=== PATIENT | female | born 1970 | race African-American/Black ===

== ENCOUNTER 2017-02-14 13:17 | Emergency (ER) | payer SELFPAY ==
[2017-02-14] MEDS ORDERED: Ibuprofen 200 MG TAB ONE (13:50)
[2017-02-14 14:26] LABS: Pregu Control Bar Appear? YES (CONTROL BAR); Specific Gravity 1.005 (1.002-1.036)
--- NOTE | 2017-02-14 15:16 | CT ---
CT BRAIN: Date: 02/14/17 PROVIDED CLINICAL HISTORY: Headache. FINDINGS: Comparison made with study dated 05/31/16. The ventricular system remains normal in size and morphology. There is no evidence for intracranial hemorrhage or mass effect. The extracranial soft tissues and osseous structures demonstrate an unrem arkable CT appearance. IMPRESSION: No evidence for intracranial hemorrhage or mass effect. POS: [facility]
== END 2017-02-14 15:05 | disposition home or self-care (01) ==
LOC: NAV ERS 13:17
DX: H66.91 Otitis media, unspecified, right ear (principal); J06.9 Acute upper respiratory infection, unspecified; I10 Essential (primary) hypertension; F41.9 Anxiety disorder, unspecified; F17.210 Nicotine dependence, cigarettes, uncomplicated
CPT/HCPCS: 70450; 81025; 87081; 87430

== ENCOUNTER 2017-03-24 12:22 | Emergency (ER) | payer SELFPAY ==
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
== END 2017-03-24 13:25 | disposition home or self-care (01) ==
LOC: NAV ERS 12:22
DX: M10.9 Gout, unspecified (principal); I10 Essential (primary) hypertension; F41.9 Anxiety disorder, unspecified; F17.210 Nicotine dependence, cigarettes, uncomplicated
CPT/HCPCS: 84550

== ENCOUNTER 2017-06-09 11:47 | Emergency (ER) | payer SELFPAY ==
[2017-06-09] MEDS ORDERED: Lidocaine Viscous Sol 2% 15 ml UD Cup ONE (12:10)
[2017-06-09] MEDS ORDERED: Mag-Al Plus 1200 MG/1200 MG/120 MG/30 ML UDCUP ONE (12:10)
[2017-06-09 12:27] LABS: ALT (SGPT) 20 U/L (8-55); AST (SGOT) 25 U/L (5-34); Albumin 3.9 g/dL (3.5-5.0); Alkaline Phosphatase 96 U/L (40-150); Anion Gap 17 mmol/L (10-20); BUN (Urea Nitrogen) 8 mg/dL (7.0-18.7); Bilirubin, Total 0.3 mg/dL (0.2-1.2); Calc. Creatinine Clearance 0 mL/min (70-130); Calcium 8.6 mg/dL (7.8-10.44); Carbon Dioxide 21 mmol/L (22-29); Chloride 110 mmol/L (98-107); Estimated GFR-MDRD 83; Globulin 3.2 g/dL (2.4-3.5); Glucose 109 mg/dL (70-105); Lipase 71 U/L (8-78); Potassium 4.3 mmol/L (3.5-5.1); Protein, Total 7.1 g/dL (6.0-8.3); Sodium 144 mmol/L (136-145)
[2017-06-09 12:33] LABS: #Basophils 0.1 thou/uL (0.0-0.2); #Eosinphils 0.1 thou/uL (0.0-0.7); #Lymphocytes 2.1 thou/uL (1.20-3.40); #Monocytes 0.3 thou/uL (0.11-0.59); #Neutrophils 1.6 thou/uL (1.40-6.50); %Eosinophils 1.4 % (0.0-10.0); %Lymphocytes 50.2 % (21.0-51.0); %Monocytes 8.1 % (0.0-10.0); %Neutrophils 38.2 % (42.0-75.0); Mean Corpuscular HGB CONC 32.8 g/dL (32.0-36.0); Mean Corpuscular Hemoglobin 31.5 pg (27.0-31.0); Mean Corpuscular Volume 96.2 fl (81.0-99.0); Mean Platelet Volume 6.8 fL (7.4-10.4); Platelet Count 246 thou/uL (130-400); RBC Distribution Width 11.8 % (11.5-14.5); Red Blood Cell (RBC) Count 3.82 mill/uL (4.20-5.40); White Blood Cell (WBC) Count 4.2 thou/uL (4.8-10.8)
[2017-06-09 12:45] LABS: Bilirubin Negative (Negative); Blood, Urine Trace (Negative); Clarity SL HAZY (Clear); Glucose, Urine (Dipstick) Negative (Negative); Leukocyte Trace (Negative); Nitrite Negative (Negative); Pregnancy Test - Urine (BHCG) Negative (NEGATIVE); Pregu Control Background? CLEAR/WHITE (CLR/WHITE); Pregu Control Bar Appear? YES (CONTROL BAR); Protein, Urine (Dipstick) Negative (Neg-Trace)
[2017-06-09 12:52] LABS: RBC/HPF 0-3 HPF (0-3); Squamous Epithelial 0-3 HPF (0-3); Trichomonas/HPF 1+ HPF (None Seen); WBC/HPF 0-3 HPF (0-3)
[2017-06-12 12:21] LABS: Chlamydia by PCR Not Detected (NotDetected); GC by PCR Not Detected (NotDetected)
== END 2017-06-09 13:10 | disposition home or self-care (01) ==
LOC: NAV ERS 11:47
DX: A59.01 Trichomonal vulvovaginitis (principal); R10.13 Epigastric pain; I10 Essential (primary) hypertension; F41.9 Anxiety disorder, unspecified; F17.210 Nicotine dependence, cigarettes, uncomplicated
CPT/HCPCS: 80053; 81003; 81015; 81025; 83690; 85025; 87491; 87591; 99284

== ENCOUNTER 2017-07-25 10:58 | Emergency (ER) | payer SELFPAY | END 2017-07-25 11:33 | disposition home or self-care (01) | LOC: NAV ERS 10:58 | DX: G56.01 Carpal tunnel syndrome, right upper limb (principal); I10 Essential (primary) hypertension; F41.9 Anxiety disorder, unspecified; F17.210 Nicotine dependence, cigarettes, uncomplicated; Z79.899 Other long term (current) drug therapy | CPT/HCPCS: 99283 ==

== ENCOUNTER 2017-12-19 17:42 | Emergency (ER) | payer SELFPAY ==
[2017-12-19] MEDS ORDERED: Ketorolac Tromethamine 30 MG/ML VIAL ONE (18:28)
[2017-12-19] MEDS ORDERED: predniSONE 20 MG TAB ONE (18:28)
[2017-12-19] MEDS ORDERED: predniSONE 10 MG TAB ONE (18:28)
== END 2017-12-19 19:00 | disposition home or self-care (01) ==
LOC: NAV ERS 17:42
DX: M10.041 Idiopathic gout, right hand (principal); M10.072 Idiopathic gout, left ankle and foot; I10 Essential (primary) hypertension; F41.9 Anxiety disorder, unspecified; F17.210 Nicotine dependence, cigarettes, uncomplicated
CPT/HCPCS: 96372; J1885; J7506; J7512

== ENCOUNTER 2018-04-18 03:57 | Emergency (ER) | payer SELFPAY ==
[2018-04-18] MEDS ORDERED: Lorazepam 2 MG/ML VIAL ONE (04:18)
== END 2018-04-18 04:51 | disposition home or self-care (01) ==
LOC: NAV ERS 03:57
DX: F43.20 Adjustment disorder, unspecified (principal); M10.9 Gout, unspecified; I10 Essential (primary) hypertension; F41.9 Anxiety disorder, unspecified; F17.210 Nicotine dependence, cigarettes, uncomplicated
CPT/HCPCS: 96372; J2060

== ENCOUNTER 2018-05-03 14:07 | Emergency (ER) | payer SELFPAY ==
[2018-05-03] MEDS ORDERED: Lorazepam 2 MG/ML VIAL ONE (14:26)
== END 2018-05-03 15:05 | disposition home or self-care (01) ==
LOC: NAV ERS 14:07
DX: F41.9 Anxiety disorder, unspecified (principal); F10.10 Alcohol abuse, uncomplicated; F43.21 Adjustment disorder with depressed mood; M10.9 Gout, unspecified; I10 Essential (primary) hypertension; F17.210 Nicotine dependence, cigarettes, uncomplicated
CPT/HCPCS: 96372; J2060

== ENCOUNTER 2019-02-10 09:53 | Emergency (ER) | payer SELFPAY ==
[2019-02-10] MEDS ORDERED: Acetaminophen 500 MG TAB ONE (10:18)
[2019-02-10] MEDS ORDERED: cefTRIAXone\\ROCEPHIN 1 GM VIAL ONE (10:18)
[2019-02-10] MEDS ORDERED: Lidocaine 1% (PF) 30 ML VIAL ONE (10:19)
== END 2019-02-10 10:52 | disposition home or self-care (01) ==
LOC: NAV ERS 09:53
DX: K04.7 Periapical abscess without sinus (principal); L03.211 Cellulitis of face; I10 Essential (primary) hypertension; M10.9 Gout, unspecified; F17.210 Nicotine dependence, cigarettes, uncomplicated; Z71.6 Tobacco abuse counseling
CPT/HCPCS: 96372; 99406; J0696; J2001

== ENCOUNTER 2019-03-29 12:05 | Emergency (ER) | payer SELFPAY ==
[2019-03-29] MEDS ORDERED: Acetaminophen 500 MG TAB ONE (12:38)
[2019-03-29] MEDS ORDERED: Ondansetron ODT 4 MG TAB ONE (12:38)
[2019-03-29] MEDS ORDERED: Ketorolac Tromethamine 60 MG/2 ML VIAL ONE (12:38)
--- NOTE | 2019-03-29 13:10 | CT ---
CT BRAIN: HISTORY: Headache. FINDINGS: Noncontrast-enhanced CT images of brain obtained. The brain is unremarkable. No evidence of intracranial masses, hemorrhages, or strokes seen. Ventri cles are of normal size. No evidence of acute intracranial pathology noted. IMPRESSION: Unremarkable CT brain. POS: [facility]
== END 2019-03-29 13:17 | disposition home or self-care (01) ==
LOC: NAV ERS 12:05
DX: G43.909 Migraine, unspecified, not intractable, without status migrainosus (principal); M10.9 Gout, unspecified; I10 Essential (primary) hypertension; F17.210 Nicotine dependence, cigarettes, uncomplicated
CPT/HCPCS: 70450; 96372; J1885; Q0162

== ENCOUNTER 2019-06-12 11:20 | Emergency (ER) | payer SELFPAY ==
[2019-06-12] MEDS ORDERED: Acetaminophen 325 MG TAB ONE (11:40)
--- NOTE | 2019-06-12 12:04 | RAD ---
LEFT KNEE 4 VIEWS: Date: 06/12/19 HISTORY: Pain. COMPARISON: Radiograph from 2015. FINDINGS: No fracture. No malalignment. No significant joint effusion. IMPRESSION: No acute osseous abnormality. POS: [facility]
--- NOTE | 2019-06-12 12:20 | RAD ---
LEFT FOOT 3 VIEWS: Date: 06/12/19 HISTORY: Left foot pain. FINDINGS/IMPRESSION: No fracture, dislocation, bony destruction, or periosteal reaction seen. No significant interval change is seen since exam of 03/24/17. POS: [facility]
[2019-06-12 12:34] LABS: Pregnancy Test - Urine (BHCG) Negative (Negative)
[2019-06-12 12:35] LABS: Pregu Control Background? CLEAR/WHITE (CLR/WHITE); Pregu Control Bar Appear? YES (CONTROL BAR); Specific Gravity 1.005 (1.002-1.036)
[2019-06-12] MEDS ORDERED: Ketorolac Tromethamine 60 MG/2 ML VIAL ONE (12:39)
== END 2019-06-12 13:10 | disposition home or self-care (01) ==
LOC: NAV ERS 11:20
DX: M25.562 Pain in left knee (principal); M79.672 Pain in left foot; F17.210 Nicotine dependence, cigarettes, uncomplicated; I10 Essential (primary) hypertension; M10.9 Gout, unspecified; F41.9 Anxiety disorder, unspecified; Z79.899 Other long term (current) drug therapy
CPT/HCPCS: 81025; 96372; J1885

== ENCOUNTER 2019-06-20 14:41 | Emergency (ER) | payer SELFPAY ==
[~2019-06-20 14:41] MED LIST: Iopamidol 370 76% 100 ML VIAL ONE
[2019-06-20 14:58] LABS: Hemoglobin 13.1 g/dL (12.0-16.0); Mean Corpuscular HGB CONC 32.7 g/dL (32.0-36.0); Mean Corpuscular Hemoglobin 32.5 pg (27.0-31.0); Mean Corpuscular Volume 99.6 fL (78.0-98.0); Mean Platelet Volume 6.1 fL (7.4-10.4); Platelet Count 255 thou/uL (130-400); RBC Distribution Width 15.9 % (11.5-14.5); Red Blood Cell (RBC) Count 4.02 mill/uL (4.20-5.40); White Blood Cell (WBC) Count 6.5 thou/uL (4.8-10.8)
[2019-06-20 15:14] LABS: Eosinophils 1 % (0-10); Hypochromia SLIGHT = 6-15 cells (100X) (0-5/hpf); Lymphocytes 55 % (21-51); MDiff Complete? YES; Neutrophil 44 % (42-75); Platelet Morphology Comment Appears Adequate
[2019-06-20 15:15] LABS: ALT (SGPT) 46 U/L (8-55); AST (SGOT) 62 U/L (5-34); Acetaminophen Less than 6.0 mcg/mL (10.0-30.0); Albumin 4.5 g/dL (3.5-5.0); Alcohol 238 mg/dL (Less than 10); Alkaline Phosphatase 108 U/L (40-150); Anion Gap 19 mmol/L (10-20); BUN (Urea Nitrogen) 6 mg/dL (7.0-18.7); Bilirubin, Total 0.3 mg/dL (0.2-1.2); Calc. Creatinine Clearance 0 mL/min (70-130); Calcium 9.2 mg/dL (7.8-10.44); Carbon Dioxide 24 mmol/L (22-29); Chloride 101 mmol/L (98-107); Estimated GFR-MDRD 79; Globulin 3.3 g/dL (2.4-3.5); Glucose 107 mg/dL (70-105); Potassium 3.1 mmol/L (3.5-5.1); Protein, Total 7.8 g/dL (6.0-8.3); Salicylate Less than 8.0 mg/dL (15.0-30.0); Sodium 141 mmol/L (136-145)
--- NOTE | 2019-06-20 15:26 | CT ---
CT HEAD WITHOUT CONTRAST: HISTORY: Left-sided weakness and slurred speech. COMPARISON: 03/29/2019 FINDINGS: There is no evidence of a hemorrhage, acute infarction, mass effect, or midline shift. The ventricul ar system is normal in size, shape, and position. There has been no interval change compared to the prior exam. IMPRESSION: No acute intracranial abnormality is demonstrated. POS: [facility]
[2019-06-20 15:28] LABS: BHCG - Serum Negative (NEGATIVE); Pregs Control Bar Appear? YES (CONTROL BAR)
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
[2019-06-20 16:11] LABS: Bilirubin Negative (Negative); Blood, Urine Trace (Negative); Clarity Clear (Clear); Glucose, Urine (Dipstick) Negative (Negative); Leukocyte Small (Negative); Nitrite Negative (Negative); Protein, Urine (Dipstick) Negative (Neg-Trace); Urobilinogen 0.2 mg/dL (Less than 2)
[2019-06-20] MEDS ORDERED: Dextrose 5 %-0.45 % NaCl 1,000 ML ONE (16:11)
[2019-06-20] MEDS ORDERED: Lorazepam 0.5 MG TAB ONE (16:14)
[2019-06-20] MEDS ORDERED: Potassium Chloride 20 MEQ TAB ONE (16:15)
[2019-06-20 16:20] LABS: Bacteria/HPF None Seen HPF (None Seen); RBC/HPF None Seen HPF (0-3); Squamous Epithelial 0-3 HPF (0-3); WBC/HPF None Seen HPF (0-3)
[2019-06-20] MEDS ORDERED: Multivit, Adult Inj 10 ML VIAL ONE (16:25)
[2019-06-20] MEDS ORDERED: Thiamine HCl 200 MG/2 ML VIAL ONE (16:25)
[2019-06-20 17:09] LABS: Amphetamine Not Detected (NotDetected); Barbiturates Screen Not Detected (NotDetected); Benzodiazepine Screen Not Detected (NotDetected); Cocaine Metabolite Screen Not Detected (NotDetected); Medtox Control Line Valid? VALID (VALID); Methadone Not Detected (NotDetected); Methamphetamine Not Detected (NotDetected); Opiate Screen Not Detected (NotDetected); Oxycodone Screen Not Detected (NotDetected); Phencyclidine (PCP) Not Detected (NotDetected); THC/Cannabinoid Screen Not Detected (NotDetected); Tricyclic Screen Not Detected (NotDetected)
[2019-06-20] MEDS ORDERED: Sodium Chloride 0.9% 1,000 ML ONE (22:56)
== END 2019-06-21 03:40 | disposition home or self-care (01) ==
LOC: NAV ERS 14:41
DX: F10.129 Alcohol abuse with intoxication, unspecified (principal); Y90.7 Blood alcohol level of 200-239 mg/100 ml; E87.6 Hypokalemia; R47.81 Slurred speech; I10 Essential (primary) hypertension; M10.9 Gout, unspecified; F17.210 Nicotine dependence, cigarettes, uncomplicated; Z79.899 Other long term (current) drug therapy
CPT/HCPCS: 36415; 70450; 70496; 70498; 80053; 80306; 80307; 81003; 81015; 82140; 82550; 84484; 84703; 85025; 93005; 96360; 96361; 96365; 96366; J3411; J7042; J7050; Q9967

== ENCOUNTER 2019-07-31 14:42 | Emergency (ER) | payer SELFPAY ==
[2019-07-31] MEDS ORDERED: Colchicine 0.6 MG TAB ONE ×2 (15:14→16:03)
[2019-07-31 15:39] LABS: Anion Gap 18 mmol/L (10-20); BUN (Urea Nitrogen) 8 mg/dL (7.0-18.7); Calc. Creatinine Clearance 0 mL/min (70-130); Calcium 8.8 mg/dL (7.8-10.44); Carbon Dioxide 21 mmol/L (22-29); Chloride 108 mmol/L (98-107); Estimated GFR-MDRD Greater than 90; Glucose 96 mg/dL (70-105); Potassium 3.4 mmol/L (3.5-5.1); Sodium 144 mmol/L (136-145); Uric Acid 8.5 mg/dL (2.6-6.0)
== END 2019-07-31 16:10 | disposition home or self-care (01) ==
LOC: NAV ERS 14:42
DX: M10.9 Gout, unspecified (principal); I10 Essential (primary) hypertension; F41.9 Anxiety disorder, unspecified; F17.210 Nicotine dependence, cigarettes, uncomplicated; Z79.899 Other long term (current) drug therapy
CPT/HCPCS: 80048; 84550; 99283

== ENCOUNTER 2019-08-18 19:13 | Emergency (ER) | payer SELFPAY ==
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
== END 2019-08-18 20:17 | disposition home or self-care (01) ==
LOC: NAV ERS 19:13
DX: S63.501A Unspecified sprain of right wrist, initial encounter (principal); S00.93XA Contusion of unspecified part of head, initial encounter; F10.129 Alcohol abuse with intoxication, unspecified; M10.9 Gout, unspecified; I10 Essential (primary) hypertension; F41.9 Anxiety disorder, unspecified; F17.210 Nicotine dependence, cigarettes, uncomplicated; Z79.899 Other long term (current) drug therapy; Y04.0XXA Assault by unarmed brawl or fight, initial encounter
CPT/HCPCS: 70450; 72125

== ENCOUNTER 2020-01-08 10:40 | Emergency (ER) | payer SELFPAY ==
[2020-01-08] MEDS ORDERED: Ondansetron ODT 4 MG TAB ONE (11:00)
[2020-01-08] MEDS ORDERED: Acetaminophen 500 MG TAB ONE (11:00)
== END 2020-01-08 11:16 | disposition home or self-care (01) ==
LOC: NAV ERS 10:40
DX: M54.5 Low back pain (principal); I10 Essential (primary) hypertension; Z76.0 Encounter for issue of repeat prescription; F41.9 Anxiety disorder, unspecified; M10.9 Gout, unspecified; F17.210 Nicotine dependence, cigarettes, uncomplicated; Z79.899 Other long term (current) drug therapy
CPT/HCPCS: 99283; Q0162

== ENCOUNTER 2020-10-05 17:04 | Emergency (ER) | payer SELFPAY ==
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
[2020-10-05] MEDS ORDERED: Indomethacin 25 mg Capsule ONE (18:00)
== END 2020-10-05 18:07 | disposition home or self-care (01) ==
LOC: NAV ERS 17:04
DX: S73.102A Unspecified sprain of left hip, initial encounter (principal); M10.9 Gout, unspecified; I10 Essential (primary) hypertension; F41.9 Anxiety disorder, unspecified; F17.210 Nicotine dependence, cigarettes, uncomplicated; W18.30XA Fall on same level, unspecified, initial encounter

== ENCOUNTER 2021-01-13 15:57 | Emergency (ER) | payer SELFPAY ==
--- NOTE | 2021-01-13 16:24 | RAD ---
XR Shoulder Lt 3 View STANDARD History: Pain Comparison: None. Findings: No acute fracture or malalignment. Visualized ribs are intact. Impression: No acute osseous abnormality.
[2021-01-13] MEDS ORDERED: traMADol HCl 50 MG TAB ONE (16:25)
== END 2021-01-13 16:27 | disposition home or self-care (01) ==
LOC: NAV ERS 15:57
DX: S40.012A Contusion of left shoulder, initial encounter (principal); I10 Essential (primary) hypertension; M10.9 Gout, unspecified; W22.8XXA Striking against or struck by other objects, initial encounter

== ENCOUNTER 2021-03-18 18:06 | Emergency (ER) | payer SELFPAY ==
[2021-03-18] MEDS ORDERED: traMADol HCl 50 MG TAB ONE (20:40)
[2021-03-18] MEDS ORDERED: predniSONE 20 MG TAB ONE (20:40)
== END 2021-03-18 20:46 | disposition home or self-care (01) ==
LOC: NAV ERS 18:06
DX: M25.572 Pain in left ankle and joints of left foot (principal); M10.9 Gout, unspecified; I10 Essential (primary) hypertension; F17.210 Nicotine dependence, cigarettes, uncomplicated
CPT/HCPCS: J7512

== ENCOUNTER 2021-04-24 11:16 | Emergency (ER) | payer SELFPAY | END 2021-04-24 11:48 | disposition home or self-care (01) | LOC: NAV ERS 11:16 | DX: M79.672 Pain in left foot (principal); M10.9 Gout, unspecified; I10 Essential (primary) hypertension; F17.210 Nicotine dependence, cigarettes, uncomplicated; Z79.899 Other long term (current) drug therapy | CPT/HCPCS: 99283 ==

== ENCOUNTER 2021-04-25 13:45 | Emergency (ER) | payer SELFPAY ==
[2021-04-25] MEDS ORDERED: HYDROcodone/Acetaminophen 5/325 mg Tablet ONE (14:34)
== END 2021-04-25 14:38 | disposition home or self-care (01) ==
LOC: NAV ERS 13:45
DX: M10.9 Gout, unspecified (principal); I10 Essential (primary) hypertension; F17.210 Nicotine dependence, cigarettes, uncomplicated; Z79.899 Other long term (current) drug therapy

== ENCOUNTER 2021-06-20 19:01 | Emergency (ER) | payer SELFPAY ==
[2021-06-20] MEDS ORDERED: Acetaminophen 500 MG TAB ONE (19:17)
== END 2021-06-20 19:44 | disposition home or self-care (01) ==
LOC: NAV ERS 19:01
DX: S00.03XA Contusion of scalp, initial encounter (principal); I10 Essential (primary) hypertension; F17.210 Nicotine dependence, cigarettes, uncomplicated; Z71.6 Tobacco abuse counseling; Z79.899 Other long term (current) drug therapy; W10.9XXA Fall (on) (from) unspecified stairs and steps, initial encounter
CPT/HCPCS: 70450; 99406

== ENCOUNTER 2021-11-06 00:22 | Emergency (ER) | payer SELFPAY | END 2021-11-06 01:09 | disposition home or self-care (01) | LOC: NAV ERS 00:22 | DX: S23.41XA Sprain of ribs, initial encounter (principal); I10 Essential (primary) hypertension; F17.210 Nicotine dependence, cigarettes, uncomplicated; M10.9 Gout, unspecified; Z79.899 Other long term (current) drug therapy; W19.XXXA Unspecified fall, initial encounter | CPT/HCPCS: 71046 ==

== ENCOUNTER 2021-12-21 20:14 | Emergency (ER) | payer SELFPAY | END 2021-12-21 20:21 | disposition home or self-care (01) | LOC: NAV ERS 20:14 | DX: J06.9 Acute upper respiratory infection, unspecified (principal); B34.9 Viral infection, unspecified; I10 Essential (primary) hypertension; M10.9 Gout, unspecified; F17.210 Nicotine dependence, cigarettes, uncomplicated; Z79.899 Other long term (current) drug therapy | CPT/HCPCS: 99283 ==

== ENCOUNTER 2022-04-06 17:56 | Emergency (ER) | payer SELFPAY | END 2022-04-06 18:36 | disposition home or self-care (01) | LOC: NAV ERS 17:56 | DX: S70.362A Insect bite (nonvenomous), left thigh, initial encounter (principal); I10 Essential (primary) hypertension; M10.9 Gout, unspecified; F17.210 Nicotine dependence, cigarettes, uncomplicated; W57.XXXA Bitten or stung by nonvenomous insect and other nonvenomous arthropods, initial encounter | CPT/HCPCS: 99282 ==

== ENCOUNTER 2022-04-24 22:41 | Emergency (ER) | payer SELFPAY ==
[2022-04-24] MEDS ORDERED: Acetaminophen 500 MG TAB ONE (23:07)
== END 2022-04-25 00:50 | disposition home or self-care (01) ==
LOC: NAV ERS 22:41
DX: S92.002A Unspecified fracture of left calcaneus, initial encounter for closed fracture (principal); S92.334A Nondisplaced fracture of third metatarsal bone, right foot, initial encounter for closed fracture; S92.324A Nondisplaced fracture of second metatarsal bone, right foot, initial encounter for closed fracture; M10.9 Gout, unspecified; I10 Essential (primary) hypertension; F17.210 Nicotine dependence, cigarettes, uncomplicated; W10.9XXA Fall (on) (from) unspecified stairs and steps, initial encounter; Y93.01 Activity, walking, marching and hiking
CPT/HCPCS: 28400; 28470

== ENCOUNTER 2022-06-02 21:02 | Emergency (ER) | payer SELFPAY | END 2022-06-02 21:38 | disposition home or self-care (01) | LOC: NAV ERS 21:02 | DX: S40.012A Contusion of left shoulder, initial encounter (principal); F17.210 Nicotine dependence, cigarettes, uncomplicated; Y04.2XXA Assault by strike against or bumped into by another person, initial encounter | CPT/HCPCS: 99284 ==

== ENCOUNTER 2022-11-11 09:39 | Emergency (ER) | payer SELFPAY ==
[2022-11-11] MEDS ORDERED: Ibuprofen 200 MG TAB ONE (10:53)
[2022-11-11] MEDS ORDERED: Dexamethasone 4 MG TAB ONE (10:53)
== END 2022-11-11 11:57 | disposition home or self-care (01) ==
LOC: NAV ERS 09:39
DX: M79.672 Pain in left foot (principal); G89.29 Other chronic pain; S92.002D Unspecified fracture of left calcaneus, subsequent encounter for fracture with routine healing; I10 Essential (primary) hypertension; F17.210 Nicotine dependence, cigarettes, uncomplicated; X58.XXXD Exposure to other specified factors, subsequent encounter
CPT/HCPCS: J8540

== ENCOUNTER 2022-11-20 15:29 | Emergency (ER) | payer SELFPAY ==
[2022-11-20] MEDS ORDERED: Ondansetron ODT 4 MG TAB ONE (15:55)
[2022-11-20] MEDS ORDERED: Mag-Al Plus 1200 MG/1200 MG/120 MG/30 ML UDCUP ONE (16:00)
[2022-11-20] MEDS ORDERED: Lidocaine 2% PF 100 mg/5 ml Syringe ONE (16:00)
[2022-11-20] MEDS ORDERED: Lidocaine Viscous Sol 2% 15 ml UD Cup ONE (16:01)
== END 2022-11-20 16:44 | disposition home or self-care (01) ==
LOC: NAV ERS 15:29
DX: K29.00 Acute gastritis without bleeding (principal); I10 Essential (primary) hypertension; F17.210 Nicotine dependence, cigarettes, uncomplicated; Z79.899 Other long term (current) drug therapy
CPT/HCPCS: 99283; J2001; Q0162

== ENCOUNTER 2023-06-23 12:49 | Emergency (ER) | payer SELFPAY ==
[2023-06-23] MEDS ORDERED: traMADol HCl 50 MG TAB ONE (13:20)
[2023-06-23 13:45] LABS: #Basophils 0.1 thou/uL (0.0-0.2); #Lymphocytes 2.6 thou/uL (1.20-3.40); #Monocytes 0.4 thou/uL (0.11-0.59); #Neutrophils 2.4 thou/uL (1.40-6.50); %Basophils 1.1 % (0.0-1.0); %Eosinophils 0.6 % (0.0-10.0); %Lymphocytes 47.7 % (21.0-51.0); %Monocytes 6.6 % (0.0-10.0); Mean Corpuscular HGB CONC 32.4 g/dL (32.0-36.0); Mean Corpuscular Hemoglobin 33.5 pg (27.0-31.0); Mean Platelet Volume 7.8 fL (7.4-10.4); Platelet Count 121 10x3/uL (130-400); RBC Distribution Width 14.3 % (11.5-14.5); Red Blood Cell (RBC) Count 3.59 mill/uL (4.20-5.40); White Blood Cell (WBC) Count 5.4 10x3/uL (4.8-10.8)
[2023-06-23 14:03] LABS: ALT (SGPT) 114 U/L (8-55); AST (SGOT) 299 U/L (5-34); Albumin 4.1 g/dL (3.5-5.0); Alcohol 292.6 mg/dL (Less than 10); Alkaline Phosphatase 148 U/L (40-110); Anion Gap 20 mmol/L (10-20); BUN (Urea Nitrogen) 5 mg/dL (9.8-20.1); Bilirubin, Total 0.8 mg/dL (0.2-1.2); Calc. Creatinine Clearance 0 mL/min (70-130); Calcium 8.7 mg/dL (7.8-10.44); Carbon Dioxide 21 mmol/L (22-29); Chloride 103 mmol/L (98-107); Estimated GFR 97; Glucose 91 mg/dL (70-105); Potassium 3.2 mmol/L (3.5-5.1); Protein, Total 7.1 g/dL (6.0-8.3); Sodium 141 mmol/L (136-145)
== END 2023-06-23 14:23 | disposition home or self-care (01) ==
LOC: NAV ERS 12:49
DX: S29.011A Strain of muscle and tendon of front wall of thorax, initial encounter (principal); K70.10 Alcoholic hepatitis without ascites; F10.129 Alcohol abuse with intoxication, unspecified; I10 Essential (primary) hypertension; F17.210 Nicotine dependence, cigarettes, uncomplicated; Z79.899 Other long term (current) drug therapy; X50.1XXA Overexertion from prolonged static or awkward postures, initial encounter
CPT/HCPCS: 80053; 80307; 85025

== ENCOUNTER 2024-09-05 16:54 | Emergency (ER) | payer SELFPAY ==
[2024-09-05] MEDS ORDERED: Ipratropium/Albuterol 3 ML NEB ONE (18:07)
[2024-09-05] MEDS ORDERED: Sodium Chloride 0.9% 1,000 ML ONE (18:07)
[2024-09-05 18:51] LABS: ALT (SGPT) 83 U/L (8-55); AST (SGOT) 270 U/L (5-34); Albumin 4.3 g/dL (3.5-5.0); Alkaline Phosphatase 267 U/L (40-110); Anion Gap 19 mmol/L (10-20); BUN (Urea Nitrogen) 6 mg/dL (9.8-20.1); Bilirubin, Total 0.7 mg/dL (0.2-1.2); Calc. Creatinine Clearance 0 mL/min (70-130); Calcium 9.2 mg/dL (7.8-10.44); Carbon Dioxide 29 mmol/L (22-29); Chloride 98 mmol/L (98-107); Estimated GFR 79; Globulin 4.1 g/dL (2.4-3.5); Glucose 107 mg/dL (70-105); Lipase 89 U/L (8-78); Potassium 2.9 mmol/L (3.5-5.1); Protein, Total 8.4 g/dL (6.0-8.3); Sodium 143 mmol/L (136-145); Troponin I 0.016 ng/mL (< 0.028)
[2024-09-05 18:53] LABS: #Basophils 0.1 thou/uL (0.0-0.2); #Monocytes 0.2 thou/uL (0.11-0.59); #Neutrophils 3.1 thou/uL (1.40-6.50); %Basophils 1.2 % (0.0-1.0); %Eosinophils 0.5 % (0.0-10.0); %Lymphocytes 46.5 % (21.0-51.0); %Monocytes 3.6 % (0.0-10.0); %Neutrophils 48.2 % (42.0-75.0); Hematocrit 38.2 % (36.0-47.0); Hemoglobin 12.7 g/dL (12.0-16.0); Mean Corpuscular HGB CONC 33.3 g/dL (32.0-36.0); Mean Corpuscular Hemoglobin 33.4 pg (27.0-31.0); Mean Platelet Volume 8.2 fL (7.4-10.4); Platelet Count 105 10x3/uL (130-400); RBC Distribution Width 13.7 % (11.5-14.5); Red Blood Cell (RBC) Count 3.81 mill/uL (4.20-5.40); White Blood Cell (WBC) Count 6.3 10x3/uL (4.8-10.8)
[2024-09-05] MEDS ORDERED: Pantoprazole 40 MG VIAL ONE (18:58)
[2024-09-05] MEDS ORDERED: Potassium Chloride 20 MEQ TAB ONE (18:58)
== END 2024-09-05 19:30 | disposition home or self-care (01) ==
LOC: NAV ERS 16:54
DX: R05.9 Cough, unspecified (principal); R11.10 Vomiting, unspecified; R09.81 Nasal congestion; K29.20 Alcoholic gastritis without bleeding; F10.20 Alcohol dependence, uncomplicated; E87.6 Hypokalemia; D69.6 Thrombocytopenia, unspecified; F17.210 Nicotine dependence, cigarettes, uncomplicated; Y90.5 Blood alcohol level of 100-119 mg/100 ml
CPT/HCPCS: 71045; 80053; 83690; 84484; 85025; 87040; 87400; 87426; 93005; 94640; 96361; 96374; J2470; J7030; J7620

== ENCOUNTER 2025-08-16 20:22 | Emergency (ER) | payer OTHER, SELFPAY | END 2025-08-16 21:21 | LOC: NAV ERS 20:22 | DX: Z53.21 Procedure and treatment not carried out due to patient leaving prior to being seen by health care provider (principal) ==